=== PATIENT | female | born 1980 | race Two or more races ===

== ENCOUNTER 2020-05-26 17:11 | Emergency (ER) | payer OTHER ==
[~2020-05-26] VITALS: Ht 170.2 cm; Wt 78.0 kg
[2020-05-26 17:16] VITALS: BP 167/95
--- NOTE | 2020-05-26 17:23 | NUR ---
Pt here for taking 500mg of tramadol which is more than she takes on regular basis. Pt reports that she feels very dizzy now. Pt reports that she normally takes 300mg of tramadol but wanted to experiment with a higher doseto help her. Pt reports she has no complaints or medical issues. Pt reports that when she sits still she feels better. Pt connected to monitors and call light in reach. vss. Pt has no signs or symptoms of overdose or hypoxia.
[2020-05-26] MEDS ORDERED: SODIUM CHLORIDE 0.9% 1,000ML IVBOLUS ONE (17:30)
[2020-05-26] MEDS ORDERED: ONDANSETRON 2MG/ML, 2ML IVPush ONE (17:30)
[2020-05-26] MEDS ORDERED: SODIUM CHLORIDE FLUSH 10ML SYR IVF ONE (17:30)
[2020-05-26] MEDS ORDERED: ONDANSETRON 2MG/ML, 2ML ONE (17:43)
--- NOTE | 2020-05-26 17:48 | NUR ---
Pt reporting she feels better and wants to leave, Spoke to pt and informed Dr. Montgomery would like for the bloodwork to come back first prior to leaving. verbalize to patient okay to hold off on iv and medications. Pt informed she may leave at any time but would have to sign out AMA. Pt reports she will wait for her blood work to come back first.
[2020-05-26 18:05] LABS: ALBUMIN 3.6 g/dL (3.4-5.0); ANION GAP 6 mmol/L (5-15); CALCIUM 8.3 mg/dL (8.5-10.1); CHLORIDE 112 mmol/L (98-107)
[2020-05-26 18:09] LABS: ALANINE AMINOTRANSFERASE 20 U/L (12-78); ALKALINE PHOSPHATASE 60 U/L (45-117); BILIRUBIN,TOTAL 0.2 mg/dL (0.2-1.0); TOTAL PROTEIN 7.5 g/dL (6.4-8.2)
[2020-05-26 18:13] LABS: MEAN CORPUSCULAR HEMOGLOBIN 16.7 pg (27.0-34.8); MEAN CORPUSCULAR VOLUME 57.2 fL (80-100); MEAN PLATELET VOLUME 8.6 fL (7.4-10.4); PLATELET COUNT 371 x10^3/uL (130-400); RED BLOOD COUNT 4.43 x10^6/uL (3.82-5.3); RED CELL DISTRIBUTION WIDTH 23.5 % (9.6-15.2)
[2020-05-26 18:14] LABS: MEAN CORPUSCULAR HGB CONC 29.2 g/dL (32.4-35.8)
[2020-05-26 18:27] LABS: MD YES
[2020-05-26 18:32] LABS: EOS#(MANUAL) 0.19 x10^3/uL (0.0-0.4); EOS% (MANUAL) 2 % (1-7); LYMPH#(MANUAL) 1.05 x10^3/uL (1-3.4); LYMPHS% (MANUAL) 11 % (22-44); MONOS#(MANUAL) 0.48 x10^3/uL (0.3-2.7); MONOS% (MANUAL) 5 % (2-9); SEG#(MANUAL) 7.79 x10^3/uL (1.8-6.8); SEGS% (MANUAL) 82 % (42-75)
[2020-05-26 18:33] LABS: ANISOCYTOSIS 2+; HYPOCHROMIA 2+; MICROCYTOSIS 2+
[2020-05-26 18:34] LABS: OVALOCYTES 1+; POLYCHROMASIA 1+
[2020-05-26 18:37] LABS: <PLATELET ESTIMATE> ADEQUATE; <PLT MORPHOLOGY> NORMAL PLT MORPH
--- NOTE | 2020-05-26 19:07 | NUR ---
dc by audrey JOSEPH: Patient/Caregiver given discharge instructions and they have confirmed that they understand the instructions. Patient ambulatory with steady gait.
== END 2020-05-26 19:09 | disposition home or self-care (01) ==
LOC: ED 17:55
DX: G43.909 Migraine, unspecified, not intractable, without status migrainosus (principal); R42 Dizziness and giddiness; D63.8 Anemia in other chronic diseases classified elsewhere; R00.0 Tachycardia, unspecified
CPT/HCPCS: 36415; 80053; 85025; 93005; 99284